=== PATIENT | male | born 1955 | race Caucasian/White ===

== ENCOUNTER 2016-12-12 23:14 | Inpatient (IN) | payer OTHER ==
[~2016-12-12] VITALS: Ht 162.6 cm; Wt 66.3 kg
[2016-12-12 23:43] VITALS: Ht 162.6 cm; Wt 66.3 kg
[2016-12-13] VITALS (13 sets, daily range): BP systolic 131–154; BP diastolic 76–88; PULSE 78–106; RESP 16–20
[2016-12-13] MEDS ORDERED: ASPI81TA3 PO (00:43)
[2016-12-13] MEDS ORDERED: METF1000 PO (00:43)
[2016-12-13] MEDS ORDERED: HYDR-906 PO (00:43)
[2016-12-13] MEDS ORDERED: AMOX1TAB PO (00:43)
[2016-12-13] MEDS ORDERED: SERT25TA PO (00:43)
[2016-12-13] MEDS ORDERED: LISI20TA11 PO (00:43)
[2016-12-13] MEDS ORDERED: MECL-77 PO (00:43)
[2016-12-13] MEDS ORDERED: ONDANSETRON 4 MG INJ IV PRN (01:00)
[2016-12-13] MEDS ORDERED: NACL 0.9% 3 ML SYG IV SCH (01:00)
[2016-12-13] MEDS ORDERED: MECLIZINE 25 MG TAB PO PRN (01:00)
[2016-12-13] MEDS ORDERED: DOCUSATE SODIUM 100 MG CAP PO PRN (01:00)
[2016-12-13] MEDS ORDERED: LORAZEPAM 2 MG INJ IV PRN (01:00)
[2016-12-13] MEDS ORDERED: ACETAMINOPHEN 325 MG TAB PO PRN (01:00)
[2016-12-13] MEDS ORDERED: NITROGLYCERIN (SL) 0.4 MG TAB SL PRN (01:00)
[2016-12-13] MEDS ORDERED: VANCOMYCIN IV PER PHARMACY XX SCH (01:00)
[2016-12-13] MEDS ORDERED: morphine 2 MG INJ IV PRN (01:00)
[2016-12-13] MEDS: SOD CHLORIDE 0.9% 1,000 ML IV SCH ×2 (01:37→14:14)
--- NOTE | 2016-12-13 01:38 | HP ---
Date/Time of Note Date/Time of Note DATE: 12/13/16 TIME: 01:30 Assessment/Plan VTE Prophylaxis VTE Prophylaxis Intervention: heparin Lines/Catheters IV C[facility]ter Type [facility]from [facility] Saline Lock Urinary Cath still in place: No Assessment/Plan Assessment/Plan 61 yo male with a past medical history of type II DM, essential hypertension, depression, who presents with acute abdominal pain. 1. Sepsis - tachycardia/lactic acid - gastroenteritis - will admit the patient to telemetry, IV antibiotics, check stool studies/culture, IVF 2. Type II DM - uncontrolled - will check [id number], ISS 3. Pseudohyponatremia - 2/2 to #2 4. Essential hypertension - aspirin/lisinopril - hold for hyperkalemia - hydralazine for sbp > 160 5. Hyperkalemia - Kayexalate 6. Transaminitis - sepsis vs other - will check US liver, hepatitis panel 7. GI ppx - pepcid 8. DVT ppx - heparin answered all of his questions. as per clinical course. this history and physical took greater then 45 minutes to complete HPI/ROS Admit Date/Time Admit Date/Time Dec 13, 2016 at 1:30 am Hx of Present Illness 61 yo male with a past medical history of type II DM, essential hypertension, depression, who presents with acute abdominal pain. He states that pain is diffuse, pressure like, intermittent in nature, 5/10 in intensity --> 0/10, with chills, and non-productive cough. He denies any shortness of breath, loss of consciousness, headaches, urinary/bowel irregularities, fevers, nausea/ vomiting/diarrhea/constipation, sick contacts, recent travel, chest pain, or other constitutional symptoms. He had gone to [facility] for initial evaluation, and transferred here to [facility] for insurance purposes. [facility]: Labs: Glucose 539, K+ 5.4, Na+: 128, WBC: 11/5, AST: 43/ALT:113, Alk Phos 237, Lactate: 2.9 UA negative CXR: no active disease CT abd/pelvis - diverticulosis without evidence of diverticulitis CT head: no acute disease ROS 14 point review of systems completed, please refer to HPI for any positive findings PMH/Family/Social Past Medical History depression Medical History: diabetes, hypertension Past Surgical History Past Surgical Hx: no surgical history Family History Significant Family History: diabetes (father from complications; sister) Social History Alcohol Use: none Smoking Status: Never smoker Drug Use: none Exam/Review of Systems Vital Signs Vitals Vital Signs Date Time Temp Pulse Resp B/P Pulse Ox O2 Delivery O2 Flow Rate FiO2 12/13/16 00:12 91 Exam Exam Gen Khalida: mild distress 2/2 to abdominal pain, AAOx4 HEENT: NC/AT, PERRLA, EOMI, no pharyngeal erythema, no tonsillar exudates, no lymphadenopathy, no JVD, no carotid bruits NECK: supple, no thyromegaly THORAX: symmetrical, no obvious deformities CV: S1S2, RRR, no M/G/R Lungs: CTAB no W/C/R/R Abd: soft, TTP to deep palpation/ND, +BS, no rebound, no guarding, neg HSM EXT: no edema, no ecchymosis, no clubbing, FROM Neuro: CN II-XII grossly intact, no focal deficits Psych: good mentation, alert and oriented, good mood and affect Skin: burn changes to bilateral hands Medications Medications Current Medications Sodium Chloride (NS) 1,000 ml @ 75 mls/hr [id number] IV ; Start 12/13/16 at 00:54 ; Stop 12/14/16 at 03:33 Lorazepam (Ativan) 0.5 mg Q6H PRN IV ANXIETY; Start 12/13/16 at 01:00 Ondansetron HCl (Zofran Inj) 4 mg Q6H PRN IV NAUSEA AND/OR VOMITING; Start at 01:00 Nitroglycerin (Nitroglycerin (Sl Tab) 0.4 Mg) 1 tab Q5M PRN SL CHEST PAIN; Start 12/13/16 at 01:00 Acetaminophen (Tylenol Tab) 650 mg Q6H PRN PO PAIN LEVEL 1-3 OR FEVER; Start at 01:00 Morphine Sulfate (morphine) 2 mg Q4H PRN IV PAIN LEVEL 7-10; Start 12/13/16 at 01:00 Docusate Sodium (Colace) 100 mg Q12H PRN PO CONSTIPATION; Start 12/13/16 at 01: 00 Famotidine (Pepcid) 20 mg Q12 PO ; Start 12/13/16 at 09:00 Heparin Sodium (Porcine) (Heparin (5000 Units/0.5 ml)) 5,000 unit Q12 SC ; Start 12/13/16 at 09:00 Aspirin (Aspirin) 81 mg DAILY PO ; Start 12/13/16 at 09:00 Lisinopril (Zestril) 20 mg BID PO ; Start 12/13/16 at 09:00 Meclizine HCl (Antivert) 25 mg Q6 PRN PO DIZZINESS; Start 12/13/16 at 01:00 Sertraline HCl 10 mg 10 mg QHS PO ; Start 12/13/16 at 21:00; Status UNV Piperacillin Sod/ Tazobactam Sod (Zosyn 3.375gm/ 100 ml (Pmx)) 100 ml @ 200 mls /hr Q6 IVPB ; Start 12/13/16 at 06:00 Diagnostic Test (Pha) (Accucheck) 1 ea 02 XX ; Start 12/13/16 at 02:00 IRVING CRAIG MD Dec 13, 2016 01:38
[2016-12-13] MEDS: CIPROFLOXACIN 400MG/D5W 200 ML IVPB SCH ×3 (01:48→21:45)
[2016-12-13] MEDS: ACCUCHECK XX SCH (02:00)
[2016-12-13 02:08] LABS: CREATINE KINASE < 20 IU/L (23-200)
[2016-12-13 02:09] LABS: CK-MB < 0.22 ng/ml (0.0-2.4)
[2016-12-13 02:15] LABS: TROPONIN-I < 0.012 ng/ml (0.00-0.12)
[2016-12-13 02:51] LABS: HAAIG REFLEX REFLEX FILED
[2016-12-13] MEDS: metroNIDAZOLE 500 MG/NS (PMX) 100 ML IVPB SCH ×3 (03:02→18:51)
[2016-12-13 05:53] LABS: HEPATITIS B CORE ANTIBODY NEGATIVE (NEGATIVE)
[2016-12-13] MEDS ORDERED: PIPER-TAZO 3.375 GM IV (PMX) 100 ML IVPB SCH (06:00)
[2016-12-13] MEDS ORDERED: GLUCOSE GEL 15 GRAM TUBE BUCCAL PRN (07:30)
[2016-12-13] MEDS ORDERED: DEXTROSE 50% 50 ML SYRINGE IV PRN ×2 (07:30)
[2016-12-13] MEDS ORDERED: GLUCAGON 1 MG INJ IM PRN (07:30)
[2016-12-13] MEDS ORDERED: GLUCOSE GEL 15 GRAM TUBE PO PRN ×2 (07:30)
[2016-12-13 07:38] LABS: CREATINE KINASE 24 IU/L (23-200)
[2016-12-13 07:43] LABS: CHOL/HDL RATIO 7.5 RATIO; MAGNESIUM 1.5 mg/dl (1.7-2.5)
[2016-12-13 07:51] LABS: TROPONIN-I 0.066 ng/ml (0.00-0.12)
[2016-12-13 08:00] LABS: CK-MB < 0.22 ng/ml (0.0-2.4)
[2016-12-13 08:10] LABS: THYROID STIMULATING HORMONE 0.499 MIU/L (0.465-4.680)
[2016-12-13] MEDS: ASPIRIN 81 MG TAB PO SCH (08:30)
[2016-12-13] MEDS: FAMOTIDINE 20 MG TAB PO SCH ×2 (08:30→21:45)
[2016-12-13] MEDS: LISINOPRIL 20 MG TAB PO SCH ×2 (08:33→21:45)
[2016-12-13] MEDS: HEPARIN 5,000 UNIT/0.5 ML SYG SC SCH ×2 (08:34→21:50)
[2016-12-13] MEDS: INSULIN ASPART [NOVOLOG] 3 ML PEN SC SCH ×5 (08:35→22:03)
--- NOTE | 2016-12-13 09:55 | RADRPT ---
PROCEDURE: Right upper quadrant abdominal ultrasound. CLINICAL INDICATION: Abdominal pain, abnormal liver function tests TECHNIQUE: Olson scale and color doppler ultrasound images of the right upper quadrant. COMPARISON: None FINDINGS: Pancreas: Visualized portions appear of normal echogenicity, no focal lesions. Liver: Morphology: Normal in size and contour. Echogenicity: Normal. Focal lesions: None. Main portal vein: Patent with hepatopetal flow. Biliary System: Normal appearing gallbladder wall. No gallstones seen. No intrahepatic biliary dilatation. Common bile duct measures mm in maximal dimension. Kidneys: Right 10.1 cm in length. Right renal cortical thickness is preserved. Normal echogenicity. No hydronephrosis. No renal calculi. 1.6 cm cyst in the upper pole of the right kidney. No free fluid identified. IMPRESSION: Normal gallbladder without gallstones. Normal appearance the liver without focal lesions. RPTAT: AADD .Kai Haq MD, MD Date Time Electronically viewed and signed by .Kai Haq MD, on 12/13/2016 09:55 .B/
[2016-12-13] MEDS ORDERED: MAGNESIUM SULFATE 4 GM/100 ML 100 ML IVPB ONE (10:30)
[2016-12-13] MEDS: INSULIN GLARGINE [LANtus] 3 ML PEN SC SCH (14:44)
[2016-12-13] MEDS ORDERED: SERTRALINE 50 MG TAB PO SCH (21:00)
[2016-12-14 00:21] VITALS: BP 136/73; RESP 20
[2016-12-14] MEDS: ACCUCHECK XX SCH (02:00)
[2016-12-14] MEDS: metroNIDAZOLE 500 MG/NS (PMX) 100 ML IVPB SCH (02:29)
[2016-12-14 04:21] VITALS: BP 124/75; RESP 20
[2016-12-14 06:50] VITALS: BP 155/87; RESP 20
[2016-12-14 07:05] LABS: ADD SCAN DIFF NO
[2016-12-14 07:11] LABS: ABNORMAL IP MESSAGE 1; BASOPHIL # 0.1 10^3/ul (0.0-0.1); BASOPHILS % 0.7 % (0.0-2.0); EOSINOPHILS # 0.1 10^3/ul (0.0-0.5); EOSINOPHILS % 1.1 % (0.0-7.0); HEMATOCRIT 44.5 % (42.0-52.0); HEMOGLOBIN 14.7 g/dl (14.0-18.0); LYMPHOCYTES # 5.3 10^3/ul (0.8-2.9); LYMPHOCYTES % 43.3 % (15.0-51.0); MEAN CORPUSCULAR HEMOGLOBIN 30.9 pg (29.0-33.0); MEAN CORPUSCULAR VOLUME 93.7 fl (82.0-101.0); MEAN PLATELET VOLUME 10.9 fl (7.4-10.4); MONOCYTE # 1.2 10^3/ul (0.3-0.9); MONOCYTES % 9.9 % (0.0-11.0); NEUTROPHIL # 5.4 10^3/ul (1.6-7.5); NEUTROPHILS % 43.9 % (39.0-77.0); PLATELET COUNT 422 10^3/UL (140-415); RED BLOOD COUNT 4.75 10^6/ul (4.70-6.10); RED CELL DISTRIBUTION WIDTH 12.4 % (11.5-14.5); WHITE BLOOD COUNT 12.2 10^3/ul (4.8-10.8)
[2016-12-14 07:22] LABS: POTASSIUM 5.2 mmol/L (3.5-5.1)
[2016-12-14 07:25] LABS: CREATININE 0.72 mg/dl (0.61-1.24)
[2016-12-14 07:26] LABS: CALCIUM 8.6 mg/dl (8.4-10.2)
[2016-12-14 07:28] LABS: PHOSPHORUS 3.3 mg/dl (2.5-4.9)
[2016-12-14] MEDS ORDERED: [UNRECOGNIZED DRUG - REMARK] XX SCH (07:30)
[2016-12-14] MEDS: INSULIN ASPART [NOVOLOG] 3 ML PEN SC SCH ×3 (07:45→11:50)
[2016-12-14] MEDS: INSULIN GLARGINE [LANtus] 3 ML PEN SC SCH (07:50)
[2016-12-14 08:37] VITALS: PULSE 90
[2016-12-14] MEDS: FAMOTIDINE 20 MG TAB PO SCH (08:58)
[2016-12-14] MEDS: ASPIRIN 81 MG TAB PO SCH (08:58)
[2016-12-14] MEDS: LISINOPRIL 20 MG TAB PO SCH (08:59)
[2016-12-14] MEDS: HEPARIN 5,000 UNIT/0.5 ML SYG SC SCH (09:04)
[2016-12-14] MEDS: CIPROFLOXACIN 400MG/D5W 200 ML IVPB SCH (09:05)
[2016-12-14 11:14] VITALS: BP 124/76; RESP 20
[2016-12-14] MEDS ORDERED: MTF1000T PO (11:22)
[2016-12-14] MEDS ORDERED: LANT3I SC (11:22)
[2016-12-14] MEDS ORDERED: NOVO3I SC (11:22)
--- NOTE | 2016-12-14 11:23 | PDOCDIS ---
Discharge Instructions CONDITION Patient Condition: Good HOME CARE INSTRUCTIONS: Special Diet: Diabetic- Low Carb ACTIVITY: Activity Restrictions: No Restrictions FOLLOW UP/APPOINTMENTS Appointments F/U WITH YOUR PCP IN 1-2 WEEKS TRENT MORALEZ Dec 14, 2016 11:23
[2016-12-14] MEDS ORDERED: INSULIN ASPART [NOVOLOG] 3 ML PEN SC SCH (11:50)
[2016-12-14] MEDS ORDERED: metroNIDAZOLE 500 MG/NS (PMX) 100 ML IVPB SCH (14:00)
--- NOTE | 2016-12-14 22:34 | DS ---
DATE OF ADMISSION: 12/12/2016 DATE OF DISCHARGE: 12/14/2016 DISCHARGE DIAGNOSES: 1. Sepsis secondary to gastroenteritis, now resolved. 2. Diabetes type 2, uncontrolled. A1c is elevated at 9.6. The patient was seen by diabetic educat or, and the patient discontinued on insulin. 3. Transaminitis. Ultrasound shows normal gallbladder, normal appearance of liver. HOSPITAL COURSE: The patient is a 61-year-old male, history of diabetes. The patient presents with signs of gastritis, abdominal pain as well as diarrhea. Of note, patient does have depression and hypertension as well. The patient did have signs of sepsis. This did resolve. He had no more abdo stacey pain. His diarrhea resolved. The patient likely had a viral gastritis. He was, of note, put on antibiotics during his hospitalization. The patient was seen by early childhood educator aide as A1c was el evated at 9.6. The patient was started on insulin. Discharge initially held because his sugars wer e too elevated. Ultimately, this did improve with subQ insulin. He was given recommendations on ho w to administer his insulin by the early childhood educator aide. Day of discharge, the patient's vital signs, labs, physical exam were stable. He had no acute complaints. Questions were answered. CONDITION ON DISCHARGE: Stable. DISPOSITION: Home. MEDICATIONS: The patient is to continue his usual home medications. The patient was told to stop t aking the amoxicillin as well as metformin once daily. The patient was given new prescriptions for: 1. Metformin 1000 mg b.i.d. with meals. 2. NovoLog 5 with meals. 3. Lantus 15 daily. FOLLOWUP: The patient to follow up with his PCP in 1 to 2 weeks. Greater than 30 minutes was spent coordinating discharge of patient. Dictated By: TRENT MORALEZ MD BS/NTS Conf#: [id number] DID#: [id number]
[2016-12-15] MEDS ORDERED: INSULIN GLARGINE [LANtus] 3 ML PEN SC SCH (08:00)
== END 2016-12-14 12:45 | disposition home or self-care (01) | DRG 872 ==
LOC: TEL 23:14
PROVIDERS: ADMIT Student in an Organized Health Care Education/Training Program; ATTEND Student in an Organized Health Care Education/Training Program
DX: A41.9 Sepsis, unspecified organism (principal); E87.1 Hypo-osmolality and hyponatremia; I10 Essential (primary) hypertension; K52.9 Noninfective gastroenteritis and colitis, unspecified; E11.9 Type 2 diabetes mellitus without complications; E87.5 Hyperkalemia; R74.0 Nonspecific elevation of levels of transaminase and lactic acid dehydrogenase [LDH]
CPT/HCPCS: 76705; 80048; 80061; 82550; 82553; 82962; 83036; 83605; 83735; 84100; 84443; 84484; 85025; 86704; 86709; 86803; 87081; 87340; J0744; J1815; J7030